=== PATIENT | male | born 1980 | race Caucasian/White ===

== ENCOUNTER 2016-04-20 19:42 | Emergency (ER) | payer OTHER ==
[~2016-04-20] VITALS: Ht 190.5 cm; Wt 109.1 kg
[2016-04-20 19:46] VITALS: TEMP 100.2
[2016-04-20] MEDS ORDERED: PRILOSEC 20MG20 MG PO (19:51)
[2016-04-20] MEDS ORDERED: TAMIFLU 75MG75 MG PO (19:51)
[2016-04-20] MEDS ORDERED: PROVENTIL0.09 MG/A1 IH (20:13)
[2016-04-20] MEDS ORDERED: PREDNISONE20 MG PO (21:03)
[2016-04-20] MEDS ORDERED: TUSS PO (21:03)
[2016-04-20 21:12] VITALS: BP 115/67; PULSE 100
== END 2016-04-20 21:12 | disposition home or self-care (01) ==
LOC: COL.ER 19:42
DX: J20.8 Acute bronchitis due to other specified organisms (principal)
CPT/HCPCS: J7512